=== PATIENT | female | born 1980 | race Native Hawaiian/Other Pacific Islander ===

== ENCOUNTER 2021-02-02 18:35 | Emergency (ER) | payer OTHER ==
[~2021-02-02] VITALS: Ht 160 cm; Wt 63.5 kg
[2021-02-02 18:44] VITALS: BP 142/55; TEMP 97.7
== END 2021-02-02 21:51 | disposition home or self-care (01) ==
LOC: ED 18:35
DX: M62.830 Muscle spasm of back (principal); M51.36 Other intervertebral disc degeneration, lumbar region; W10.8XXA Fall (on) (from) other stairs and steps, initial encounter; Y92.89 Other specified places as the place of occurrence of the external cause
CPT/HCPCS: 96372; 99283; J1885

== ENCOUNTER 2021-03-26 15:22 | Emergency (ER) | payer OTHER ==
[~2021-03-26] VITALS: Ht 160 cm; Wt 65.3 kg
[2021-03-26 15:40] VITALS: BP 99/77; TEMP 98
== END 2021-03-26 19:47 | disposition home or self-care (01) ==
LOC: ED 15:22
DX: S61.042A Puncture wound with foreign body of left thumb without damage to nail, initial encounter (principal); W45.8XXA Other foreign body or object entering through skin, initial encounter; Y92.89 Other specified places as the place of occurrence of the external cause
CPT/HCPCS: 90472; 90715; 96372; 99283; J1885; J2001